=== PATIENT | female | born 1950 | race Caucasian/White ===

== ENCOUNTER 2022-11-07 18:34 | Inpatient (IN) | payer MEDICARE, BC ==
[~2022-11-07] VITALS: Ht 157.5 cm; Wt 65.8 kg
[2022-11-07 19:29] LABS: MEAN CORPUSCULAR HEMOGLOBIN 19.5 uug (24.7-32.8); PLATELET COUNT (AUTO) 502 K/uL (179-408)
[2022-11-07 19:39] LABS: CREATININE 0.8 mg/dL (0.6-1.3); HEMATOCRIT 19.8 % (31.2-41.9); POTASSIUM 4.2 mmol/L (3.5-5.1)
[2022-11-07 19:52] LABS: BILIRUBIN,TOTAL 0.5 mg/dL (0.2-1.0); TOTAL PROTEIN, SERUM 7.1 g/dL (6.4-8.2)
--- NOTE | 2022-11-07 20:01 | NUR ---
Called [facility] for panel call, ZOILA Cope. assistant controller.
--- NOTE | 2022-11-07 20:05 | NUR ---
Covid swab sen to lab.
--- NOTE | 2022-11-07 20:32 | NUR ---
Chaperoned Dr. Flynn during rectal exam.
[2022-11-07] MEDS ORDERED: REMEDY ESSENTIAL ZINC PASTE 113 GM TP PRN (21:00)
[2022-11-07] MEDS ORDERED: MAGNESIUM HYDROXIDE 30 ML LIQUID UDC PO PRN (21:00)
[2022-11-07] MEDS ORDERED: ACETAMINOPHEN 325 MG TABLET PO PRN (21:00)
[2022-11-07] MEDS ORDERED: ONDANSETRON 4 MG/2 ML VIAL IV PRN (21:00)
--- NOTE | 2022-11-07 21:13 | NUR ---
Called [facility] for a MS bed.
--- NOTE | 2022-11-07 21:34 | NUR ---
Report given JOE Orlando.
[2022-11-07 21:54] LABS: BAND % (MANUAL) 4 % (0-10); LYMPHOCYTES % (MANUAL) 22 % (20-40)
[2022-11-07 21:55] LABS: MONOCYTES % (MANUAL) 6 % (2-10)
[2022-11-07 21:57] LABS: EOSINOPHILS % (MANUAL) 2 % (0-8); NEUTROPHILS % (MANUAL) 66 % (42-75)
[2022-11-07 22:00] VITALS: BP 145/64
--- NOTE | 2022-11-07 22:07 | NUR ---
Pt. admitted to [facility]/S 302, under care of ZOILA Cope. Belongs List completed JOE Orlando aware of patient's arrival to unit.
[2022-11-07] MEDS: PANTOPRAZOLE SODIUM 40 MG VIAL IV SCH (22:18)
[2022-11-08] VITALS (9 sets, daily range): BP systolic 134–156; BP diastolic 50–79
--- NOTE | 2022-11-08 01:00 | NUR ---
Patient admitted to room 302 from ER with diagnosis Anemia HB=5.8 / HT= 19.8 2units PRBC blood transfusion and no reaction now,
[2022-11-08] MEDS: PANTOPRAZOLE SODIUM 40 MG VIAL IV SCH (08:55)
[2022-11-08 08:56] LABS: HEMATOCRIT 29.4 % (31.2-41.9); MEAN CORPUSCULAR VOLUME 72.2 fL (75.5-95.3); PLATELET COUNT (AUTO) 478 K/uL (179-408)
[2022-11-08 10:12] LABS: CREATININE 0.8 mg/dL (0.6-1.3); MAGNESIUM 2.2 mg/dL (1.8-2.4); PHOSPHOROUS 3.7 mg/dL (2.5-4.9)
[2022-11-08 11:35] LABS: *OCCULT BLOOD STOOL NEGATIVE (NEGATIVE)
--- NOTE | 2022-11-08 13:29 | NUR ---
patient is alert, oriented x4, no sob, respirations are even nonlabored, skin warm and dry to touch, patient stated she feels fine, no palpitations, no dizzy, no sob, able to ambulate independently, self care. patient teaching done to follow up with pcp in one week, and teaching done for any worsening of symptoms, such as feeling dizzy, or sob, or palpitations,pls go to nearest ER, or call 911. patient verbalized understanding of it. belongings are accounted and signed, ID and IV removed.
[2022-11-08 14:02] LABS: EOSINOPHILS % (MANUAL) 5 % (0-8); LYMPHOCYTES % (MANUAL) 26 % (20-40); MONOCYTES % (MANUAL) 3 % (2-10); NEUTROPHILS % (MANUAL) 66 % (42-75)
[2022-11-09] MEDS ORDERED: PANTOPRAZOLE SODIUM 40 MG TABLET.DR PO SCH (07:00)
== END 2022-11-08 13:25 | disposition home or self-care (01) | DRG 812 ==
LOC: ER 18:37 → MEDSURG3 21:30
PROVIDERS: ADMIT Nurse Practitioner Acute Care; ATTEND Nurse Practitioner Acute Care
PROC: 30233N1 Transfusion of Nonautologous Red Blood Cells into Peripheral Vein, Percutaneous Approach (ICD-10-PCS; principal; 2022-11-08)
DX: D50.9 Iron deficiency anemia, unspecified (principal); E78.5 Hyperlipidemia, unspecified; R09.02 Hypoxemia; Z79.899 Other long term (current) drug therapy
CPT/HCPCS: 36415; 70030-TC; 71045; 83735; 84100; 84484; 85025; 85730; 86850; 86900; 86901; 86920; 93005; A4663; C9113; G0378; P9016